=== PATIENT | female | born 1940 | race Caucasian/White ===

== ENCOUNTER → 2023-01-01 | Outpatient (CLI) | payer OTHER | END | disposition home or self-care (01) | LOC: RAH 08:57 | PROVIDERS: ATTEND Internal Medicine Cardiovascular Disease | DX: I45.10 Unspecified right bundle-branch block (principal); R06.09 Other forms of dyspnea; I48.91 Unspecified atrial fibrillation | CPT/HCPCS: 78452; 96374; 93017; A9500 ×2 ==